=== PATIENT | female | born 1965 | race Caucasian/White ===

== ENCOUNTER 2018-02-11 12:36 | Emergency (ER) | payer OTHER ==
--- NOTE | 2018-02-11 12:57 | EDPHY ---
H & P Stated Complaint: High BP (199/131), Time Seen by Provider: 02/11/18 12:44 HPI/ROS: CHIEF COMPLAINT: Hypertension HISTORY OF PRESENT ILLNESS: Patient is a 52-year-old female who developed mild chronic headaches over the last 2-3 weeks, immediately after she began taking Remeron for insomnia. She also noticed some puffiness in her eyes but no edema in her legs or extremities. No chest pain. No shortness of breath. No dizziness or lightheadedness. No fainting. No fevers or infections or upper respiratory symptoms. No cardiac history . She does take a small dose of lisinopril for hypertension. She spoke with her sister who is an ER nurse recommended she come and "get checked out". She has also noticed that her headaches are worse when she does not wear glasses. When she puts her glasses on the headache resolved. She states that the headache pain is mostly in her eyes. Severity: Minimal Modifying factors: Moderate REVIEW OF SYSTEMS: Constitutional: denies: chills, fever, recent illness, recent injury EENTM: See HPI denies: blurred vision, double vision, nose congestion Respiratory: denies: cough, shortness of breath Cardiac: denies: chest pain, irregular heart rate, lightheadedness, palpitations Gastrointestinal/Abdominal: denies: abdominal pain, diarrhea, nausea, vomiting, blood streaked stools Genitourinary: denies: dysuria, frequency, hematuria, pain Musculoskeletal: denies: joint pain, muscle pain Skin: denies: lesions, rash, jaundice, bruising Neurological: See HPI denies: numbness, paresthesia, tingling, dizziness, weakness Hematologic/Lymphatic: denies: blood clots, easy bleeding, easy bruising Immunologic/allergic: denies: HIV/AIDS, transplant 10 systems reviewed and negative except as noted EXAM: GENERAL: Well-appearing, well-nourished and in no acute distress. HEAD: Atraumatic, normocephalic. EYES: No obvious edema, Pupils equal round and reactive to light, extraocular movements intact, sclera anicteric, conjunctiva are normal retina normal as visualized. ENT: TMs normal, nares patent, oropharynx clear without exudates. Moist mucous membranes. NECK: Normal range of motion, supple without lymphadenopathy or JVD. LUNGS: Breath sounds clear to auscultation bilaterally and equal. No wheezes rales or rhonchi. HEART: Regular rate and rhythm without murmurs, rubs or gallops. ABDOMEN: Soft, nontender, normoactive bowel sounds. No guarding, no rebound. No masses appreciated. BACK: No CVA tenderness, no spinal tenderness, step-offs or deformities EXTREMITIES: Normal range of motion, no pitting or edema. No clubbing or cyanosis. NEUROLOGICAL: Cranial nerves II through XII grossly intact. Normal speech, normal gait. 5/5 strength, normal movement in all extremities, normal sensation , normal reflexes PSYCH: Normal mood, normal affect. SKIN: Warm, dry, normal turgor, no visible rashes or lesions. Source: Patient Exam Limitations: No limitations - Personal History LMP (Females 10-55): Hysterectomy Current Tetanus Diphtheria and Acellular Pertussis (TDAP): Yes Tetanus Vaccine Date: within 10 years - Medical/Surgical History Hx Asthma: No Hx Chronic Respiratory Disease: No Hx Diabetes: No Hx Cardiac Disease: No Hx Renal Disease: No Hx Cirrhosis: No Hx Alcoholism: No Hx HIV/AIDS: No Hx Splenectomy or Spleen Trauma: No Other PMH: HTN, hysterectomy, depression - Family History Significant Family History: No pertinent family hx - Social History Smoking Status: Current every day smoker Alcohol Use: Sober Drug Use: None Constitutional: Initial Vital Signs Temperature (C) 36.5 C 02/11/18 12:38 Heart Rate 98 02/11/18 12:38 Respiratory Rate 16 02/11/18 12:38 Blood Pressure 298/132 H 02/11/18 12:38 O2 Sat (%) 90 L 02/11/18 12:38 O2 Delivery Mode Room Air Allergies/Adverse Reactions: No Known Allergies Allergy (Verified 02/11/18 12:46) Home Medications: Medication Instructions Recorded Cymbalta 02/11/18 Hydrochlorothiazide 02/11/18 Remeron 02/11/18 Medical Decision Making ED Course/Re-evaluation: The patient has asymptomatic hypertension. No chest pain or shortness of breath. She does have a slight headache but associates it with when she began to take her Remeron and states that it improves when she wears glasses. Her headaches resolve when she wears her glasses. She also has subjective edema around her eye since taking Remeron which has known side effects of peripheral edema and weight gain. She does not have any edema in her extremities and lung sounds are clear. She is saturating 95% on room air. We discussed options. She does not think she is having heart attack and does not wish to have EKG and lab work done. I agree that this is reasonable. Her blood pressure is improved significantly with calming effect only. We discussed management of asymptomatic hypertension which consists of keeping a record of her blood pressures and following up with her primary for adjustment of medications. We also discussed wearing glasses more frequently. We also discussed discontinuing the Remeron to see if this helps with her slight facial edema. I do not appreciate any edema objectively. I did give her strict return precautions if she develops chest pain or shortness of breath or neuro deficits. 1:50 p.m. I spoke again with the patient and her sister over the phone. Patient 's sister is very angry that we did not treat her blood pressure. I discussed with the the fact that was simple calming techniques her blood pressure dropped by over 100 points in that would be dangerous to drop it any further. The patient's sister was worried about her headache that she has had for the last 3 weeks. I agree that this could be concerning in the setting of high blood pressure although the patient states that it is much more associated with the initiation of her Remeron as well as when she does not wear glasses. She told me that it improved when she put her glasses on. She did not have any focal deficits. She did not have any obvious retinal abnormalities on exam. Her headache also his somewhat chronic and does not seem to fluctuate based on her blood pressure. Certainly her blood pressure could be elevated because of the pain and anxiety. Her sister did agree that she has had a lot of anxiety. We did however discuss having her come back for further observation and possibly even imaging of her brain and admission to the hospital. Patient's sister said that she would recommend her sister go to a different hospital. Differential Diagnosis: Partial list of the Differential diagnosis considered include but were not limited to; medication reaction, anxiety, hypertension, nearsightedness and although unlikely based on the history and physical exam, I also considered dissection, acute coronary disease, PE. I discussed these differential diagnoses and the plan with the patient as well as the usual and expected course. The patient understands that the diagnosis is provisional and that in medicine we are not always correct and that further workup is often warranted. Usual and customary warnings were given. All of the patient's questions were answered. The patient was instructed to return to the emergency department should the symptoms at all worsen or return, otherwise to followup with the physician as we discussed. Departure - Departure Disposition: Home, Routine, Self-Care Clinical Impression: Hypertension Qualifiers: Hypertension type: unspecified Qualified Code(s): I10 - Essential (primary) hypertension Medication reaction Qualifiers: Encounter type: initial encounter Qualified Code(s): T50.905A - Adverse effect of unspecified drugs, medicaments and biological substances, initial encounter Near-sightedness Qualifiers: Laterality: bilateral Qualified Code(s): H52.13 - Myopia, bilateral Condition: Fair Instructions: Refractive Errors of the Eye (ED), Hypertension (ED) Referrals: KAILYN COLLADO,Juan [Primary Care Provider] - 1-2 days without fail
[2018-02-11 13:15] VITALS: BP 179/145
== END 2018-02-11 13:04 | disposition home or self-care (01) ==
LOC: CED 12:36
DX: I10 Essential (primary) hypertension (principal); T50.905A Adverse effect of unspecified drugs, medicaments and biological substances, initial encounter; H52.13 Myopia, bilateral; F41.9 Anxiety disorder, unspecified